=== PATIENT | female | born 1985 | race Caucasian/White ===

== ENCOUNTER 2020-12-01 22:49 | Emergency (ER) | payer OTHER ==
[~2020-12-01] VITALS: Ht 147.3 cm; Wt 54.4 kg
[2020-12-01 22:49] VITALS: BP 137/70
--- NOTE | 2020-12-01 22:50 | NUR ---
PATIENT PRESENTS TO ED VIA ALS/,[facility] WITH C/O LOW BLOOD SUGAR . PT STATES NHAS HEADACHE X 3 DAYSMAND HAS FELT WEAK . C/O N/V; SKIN IS PINK/WARM/DRY; AAOX4 LUNGS CLEAR BL; HR EVEN AND REGULAR; PT DENIES ANY FEVER, CP, SOB, OR COUGH AT THIS TIME; PATIENT STATES PAIN OF 10/10 AT THIS TIME; VSS; PATIENT POSITIONED FOR COMFORT; HOB ELEVATED; BEDRAILS UP X2; BED DOWN. ER MD MADE AWARE OF PT STATUS.
--- NOTE | 2020-12-01 22:53 | NUR ---
VENESSA BRADLEY TAKEN TO BED #8
[2020-12-01] MEDS ORDERED: NACL 0.9% 1,000 ML IV ONE (23:20)
[2020-12-01] MEDS ORDERED: KETOROLAC 30 MG/ML VIAL IVP ONE (23:25)
[2020-12-01] MEDS ORDERED: ONDANSETRON 4 MG/2 ML VIAL IVP ONE (23:25)
[2020-12-01] MEDS ORDERED: ONDA8TAB87 PO (23:29)
[2020-12-01] MEDS ORDERED: IBUP-2213 PO (23:29)
[2020-12-01 23:39] LABS: HEMOGLOBIN 11.6 g/dL (12.0-16.0)
--- NOTE | 2020-12-01 23:40 | NUR ---
AMBULATED TO BR FOR UA. STEADY GAIT
[2020-12-01 23:47] LABS: BASOPHILS % (AUTO) 0.4 % (0.0-2.0); HEMATOCRIT 34.2 % (36-48); LYMPHOCYTES # (AUTO) 1.5 K/uL (2.5-16.5); LYMPHOCYTES % (AUTO) 12.8 % (20.5-51.1); MEAN CORPUSCULAR HEMOGLOBIN 34 pg (27-31); MEAN CORPUSCULAR HGB CONC 34 g/dL (33-37); MONOCYTES # (AUTO) 0.8 K/uL (0.8-1.0); MONOCYTES % (AUTO) 6.6 % (1.7-9.3); NEUTROPHILS # (AUTO) 9.7 K/uL (1.8-7.7); NEUTROPHILS % (AUTO) 80.2 % (42.2-75.2); PLATELET COUNT (AUTO) 319 K/uL (140-450); RED BLOOD CELL COUNT(AUTO) 3.42 MIL/uL (4.20-5.40); RED CELL DISTRIBUTION WIDTH 13.6 % (11.6-13.7)
[2020-12-01 23:54] LABS: ALBUMIN 4.2 g/dL (3.4-5.0); CREATININE 1.1 mg/dL (0.6-1.3); POTASSIUM 3.7 mmol/L (3.5-5.1); TOTAL BILIRUBIN 0.3 mg/dL (0.0-1.0)
[2020-12-01 23:56] LABS: CARBON DIOXIDE 7.7 mmol/L (21-32)
--- NOTE | 2020-12-02 00:25 | NUR ---
DR. DUMONT AT BEDSIDE DISCUSSING PLAN OF CARE
[2020-12-02 02:41] LABS: BASOPHILS % (AUTO) 0.2 % (0.0-2.0); HEMATOCRIT 31.9 % (36-48); HEMOGLOBIN 11.1 g/dL (12.0-16.0); LYMPHOCYTES # (AUTO) 2.3 K/uL (2.5-16.5); MEAN CORPUSCULAR HEMOGLOBIN 34 pg (27-31); MEAN CORPUSCULAR HGB CONC 35 g/dL (33-37); MEAN CORPUSCULAR VOLUME 98.4 fL (80-94); MONOCYTES # (AUTO) 0.7 K/uL (0.8-1.0); MONOCYTES % (AUTO) 6.8 % (1.7-9.3); PLATELET COUNT (AUTO) 255 K/uL (140-450); RED BLOOD CELL COUNT(AUTO) 3.25 MIL/uL (4.20-5.40); RED CELL DISTRIBUTION WIDTH 13.2 % (11.6-13.7); WHITE BLOOD COUNT (AUTO) 10.1 K/uL (4.8-10.8)
[2020-12-02] MEDS ORDERED: NACL 0.9% 1,000 ML IV ONE (02:55)
[2020-12-02 03:00] LABS: ALBUMIN 3.8 g/dL (3.4-5.0); ANION GAP 28.1 (8-16); CARBON DIOXIDE 11.2 mmol/L (21-32); CREATININE 0.8 mg/dL (0.6-1.3); POTASSIUM 4.3 mmol/L (3.5-5.1); TOTAL BILIRUBIN 0.3 mg/dL (0.0-1.0)
--- NOTE | 2020-12-02 03:30 | NUR ---
ASSISTED ONTO BEDPAN AND VOIDED."I'M TO WEAK TO WALK TO THE BATHROOM"
--- NOTE | 2020-12-02 03:30 | NUR ---
SPOKE WITH DR. CAGLE FROM [facility], LAB RESULTS REPORTED
[2020-12-02] MEDS ORDERED: ONDANSETRON 4 MG/2 ML VIAL IVP ONE (03:40)
[2020-12-02] MEDS ORDERED: MORPHINE SULFATE 4 MG/ML SYR IVP ONE (03:40)
[2020-12-02] MEDS ORDERED: PIPERACILLIN/TAZOBACTAM 3.375 GM in DEXTROSE 5% 50 ML IV ONE (03:50)
--- NOTE | 2020-12-02 04:01 | NUR ---
LAB AT BEDSIDE TO DRAW BLOOD CULTURES
[2020-12-02] MEDS ORDERED: PIPERACILLIN/TAZOBACTAM 3.375 GM VIAL IV ONE (04:06)
--- NOTE | 2020-12-02 05:00 | NUR ---
RECEIVED REPORT FROM SHAHIDA WOODS. ASSUMED CARE AT THIS TIME. PT FOUND LAYING SUPINE IN BED ON CELLPHONE. VSS. WILL CONTINUE TO MONITOR.
[2020-12-02] MEDS ORDERED: DEXTROSE 50% 50 ML SYR IVP ONE (05:15)
--- NOTE | 2020-12-02 05:15 | NUR ---
BS 41. DR. DUMONT MADE AWARE. ORDER RECEIVED FOR D50, ORDER CARRIED OUT.
--- NOTE | 2020-12-02 05:27 | NUR ---
CALLED [facility] S/W SHAHIDA GUEVARA TO GIVE REPORT. ETA FOR P/U IS [id number]
--- NOTE | 2020-12-02 05:50 | NUR ---
PT AMBULATED WITH ASSIT TO RESTROOM.
--- NOTE | 2020-12-02 05:55 | NUR ---
PT RETURNED FROM RESTROOM UNASSISTED AND ATTACHED TO MONITORING SYSTEM. BS-150. ALL NEEDS MET AT THIS TIME. WILL CONTINUE TO MONITOR.
--- NOTE | 2020-12-02 06:30 | NUR ---
REPORT GIVEN TO SHAHIDA MARX. TRANSFER OF CARE AT THIS TIME.
--- NOTE | 2020-12-02 06:38 | NUR ---
CALLED SHAHIDA GUEVARA AT [facility] TO PROVIDE UPDATE.
[2020-12-02 06:51] VITALS: BP 117/59
--- NOTE | 2020-12-02 06:54 | NUR ---
Patient to be transferred to [facility]. Is being transferred due to INSURANCE. Receiving facility has accepting physician and available space. ER physician has signed transfer form. Patient or responsible republican has agreed to transfer and signed form. Patient belongings inventoried and will be sent with patient. Copy of nursing notes, lab reports, EKG, Physicians Orders and X-rays to be sent with patient. Report called to SHAHIDA AMATO at receiving facility. [facility] ambulance service has been called for transfer.
== END 2020-12-02 06:52 | disposition designated cancer center or children's hospital (05) ==
LOC: MED 22:49
DX: E16.2 Hypoglycemia, unspecified (principal); R11.2 Nausea with vomiting, unspecified; E87.2 Acidosis; F17.210 Nicotine dependence, cigarettes, uncomplicated; Z88.5 Allergy status to narcotic agent; Z88.8 Allergy status to other drugs, medicaments and biological substances; Z20.822 Contact with and (suspected) exposure to COVID-19
CPT/HCPCS: 36415; 36600; 71045; 80053; 81025; 82550; 82803; 83605; 83690; 85025; 87040; 87426; 96361; 96365; 96375; 96376; 99285; J1885; J2270; J2405; J2543; J7030; J7060